=== PATIENT | female | born 2005 | race African-American/Black ===

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

== ENCOUNTER 2023-02-14 02:22 | Inpatient (IN) | payer OTHER ==
[2023-02-14 03:13] VITALS: BMI 35.1
[2023-02-14 03:32] LABS: Fetal Membranes Rupture RUPTURE DETECTED (No Rupture)
[2023-02-14] MEDS ORDERED: Tranexamic Acid 1,000 MG/10 ML VIAL IVP PRN (04:08)
[2023-02-14] MEDS ORDERED: Promethazine HCl 25 MG/ML VIAL IM PRN ×3 (04:08→22:08)
[2023-02-14] MEDS ORDERED: Misoprostol 200 MCG TAB PR PRN (04:08)
[2023-02-14] MEDS ORDERED: Lidocaine 1% (PF) 30 ML VIAL SC PRN (04:08)
[2023-02-14] MEDS ORDERED: hydrALAZINE 20 MG/ML VIAL SLOW IVP PRN ×2 (04:08→22:08)
[2023-02-14] MEDS ORDERED: Acetaminophen 500 MG TAB PO PRN (04:08)
[2023-02-14] MEDS ORDERED: Methylergonovine 0.2 MG/ML VIAL IM PRN (04:08)
[2023-02-14] MEDS ORDERED: Carboprost 250 MCG/ML AMP IM PRN (04:08)
[2023-02-14] MEDS ORDERED: Fentanyl 100 MCG/2 ML VIAL SLOW IVP PRN (04:08)
[2023-02-14] MEDS ORDERED: Ondansetron PF 4 MG/2 ML Vial IVP PRN ×3 (04:08→22:08)
[2023-02-14] MEDS ORDERED: Lactated Ringer's 1,000 ML IV SCH (04:15)
[2023-02-14] MEDS ORDERED: NS w/ Oxytocin 30 units 500 ML IV SCH ×3 (04:15→07:45)
[2023-02-14] MEDS ORDERED: Ibuprofen 800 MG TAB PO PRN (07:32)
[2023-02-14] MEDS ORDERED: HYDROcodone/Acetaminophen 5/325 mg Tablet PO PRN ×2 (07:32→22:08)
[2023-02-14] MEDS ORDERED: Penicillin G Potassium 5 MILL.UNITS VIAL ONE (07:35)
[2023-02-14] MEDS ORDERED: Penicillin G Potassium 5 MILL.UNITS in Sodium Chloride 0.9% 100 ML IVPB SCH (07:45)
[2023-02-14 07:52] LABS: Hemoglobin 13.1 g/dL (12.0-15.5); Mean Corpuscular HGB CONC 33.7 g/dL (32.0-36.0); Mean Corpuscular Hemoglobin 27.6 pg (27.0-33.0); Mean Corpuscular Volume 82.1 fl (81.6-98.3); Mean Platelet Volume 9.3 fl (7.4-10.4); Platelet Count 305 10x3/uL (150-450); RBC Distribution Width 13.2 % (11.5-14.5); Red Blood Cell (RBC) Count 4.74 10x6/uL (3.90-5.03); White Blood Cell (WBC) Count 13.4 10x3/uL (3.5-10.5)
[2023-02-14] MEDS ORDERED: Bupivacaine/Epinephrine 0.25% 30 ML VIAL ONE (08:00)
[2023-02-14] MEDS ORDERED: ePHEDrine Sulfate 50 MG/10 ML VIAL ONE (08:00)
[2023-02-14 08:36] LABS: Syphilis Antibody Nonreactive (Nonreactive); Syphilis Antibody Index 0.02 S/CO (<1.00 Non-Reactive)
[2023-02-14 08:37] LABS: HBSAg Index 0.16 S/CO (0-0.99); Hep B Surf Ag - L&D Non-Reactive S/CO (NonReactive)
[2023-02-14] MEDS ORDERED: Fentanyl 2 mcg/Bup 0.1% Cadd 100 ML ONE (09:21)
[2023-02-14] MEDS ORDERED: Naloxone HCl 0.4 mg/ml Vial IVP PRN ×2 (10:14)
[2023-02-14] MEDS ORDERED: diphenhydrAMINE 50 MG/ML VIAL IVP PRN (10:14)
[2023-02-14] MEDS ORDERED: Acetaminophen 325 MG TAB PO PRN (10:14)
[2023-02-14] MEDS ORDERED: Lactated Ringer's 500 ML IV PRN (10:14)
[2023-02-14] MEDS ORDERED: ePHEDrine Sulfate 50 MG/10 ML VIAL SLOW IVP PRN (10:14)
[2023-02-14] MEDS ORDERED: Moisturizing Cream (Eucerin) 113 GM JAR TOP PRN (10:14)
[2023-02-14] MEDS ORDERED: Communication Order-Pharmacy FS SCH (10:15)
[2023-02-14] MEDS: Fentanyl 2 mcg/Bupivacaine 0.1% Cassette 100 ML EPIDURAL SCH ×2 (10:45→17:40)
[2023-02-14] MEDS: Penicillin G 2.5 MILL.units 2.5 MILL.UNITS in Premix Bag 1 BAG IVPB SCH ×2 (12:44→16:49)
[2023-02-14] MEDS ORDERED: Lanolin Ointment 7 GM TUBE TOP PRN (22:08)
[2023-02-14] MEDS ORDERED: Preparation H Ointment 28 GM TUBE PR PRN (22:08)
[2023-02-14] MEDS ORDERED: Benzocaine-Menthol 82.5 ML CAN TOP PRN (22:08)
[2023-02-14] MEDS ORDERED: Bisacodyl 10 MG SUPP PR PRN (22:08)
[2023-02-14] MEDS ORDERED: Boostrix 0.5 ML (Tdap) VIAL (>/=7 yrs of age) IM ONE (22:08)
[2023-02-14] MEDS ORDERED: Milk Of Magnesia 30 ML UDCUP PO PRN (22:08)
[2023-02-14] MEDS ORDERED: diphenhydrAMINE 25 MG CAP PO PRN (22:08)
[2023-02-14] MEDS: Ibuprofen 800 MG TAB PO SCH (23:38)
[2023-02-15] MEDS: Ibuprofen 800 MG TAB PO SCH ×3 (08:04→21:22)
[2023-02-15] MEDS: Docusate 100 MG CAP PO SCH ×2 (08:04→21:21)
[2023-02-15] MEDS: Prenatal Vitamin 1 TAB PO SCH (08:04)
[2023-02-15] MEDS: Ferrous Sulfate 325 MG TAB PO SCH (18:49)
[2023-02-16] MEDS: Ibuprofen 800 MG TAB PO SCH (06:28)
[2023-02-16] MEDS: Prenatal Vitamin 1 TAB PO SCH (08:54)
[2023-02-16] MEDS: Docusate 100 MG CAP PO SCH (08:54)
[2023-02-16] MEDS: Ferrous Sulfate 325 MG TAB PO SCH (08:55)
[2023-02-16 13:42] VITALS: BP 130/76; TEMP 99.1
== END 2023-02-16 12:50 | disposition home or self-care (01) | DRG 807 ==
LOC: CSHLD/OP 02:22 → CSHLD 07:34 → CSHPP 02-15 10:50
PROVIDERS: ADMIT Family Medicine; ATTEND Family Medicine
PROC: 10E0XZZ Delivery of Products of Conception, External Approach (ICD-10-PCS; principal; 2023-02-14)
PROC: 0KQM0ZZ Repair Perineum Muscle, Open Approach (ICD-10-PCS; 2023-02-14)
DX: O42.02 Full-term premature rupture of membranes, onset of labor within 24 hours of rupture (principal); Z37.0 Single live birth; Z3A.38 38 weeks gestation of pregnancy; O99.824 Streptococcus B carrier state complicating childbirth; Z79.899 Other long term (current) drug therapy; O70.1 Second degree perineal laceration during delivery
CPT/HCPCS: 36415; 51702; 84112; 85027; 86780; 86850; 86900; 86901; 87340; 99285; J2540; J2590; J3490; J7120

== ENCOUNTER 2023-12-05 08:13 | Emergency (ER) | payer MEDICAID, SELFPAY ==
[2023-12-05 16:38] LABS: SARS-CoV-2 NAA Rapid Test DETECTED (NotDetected)
== END 2023-12-05 09:30 | disposition home or self-care (01) ==
LOC: CSHERS 08:13
DX: J06.9 Acute upper respiratory infection, unspecified (principal)
CPT/HCPCS: 87081; 87430; 99283; U0002

== ENCOUNTER 2024-09-16 09:30 | Emergency (ER) | payer SELFPAY ==
[2024-09-16] MEDS ORDERED: Ketorolac Tromethamine 30 MG (1 mL) VIAL ONE (10:13)
[2024-09-16] MEDS ORDERED: Ondansetron ODT 4 MG TAB ONE (10:13)
[2024-09-16 10:46] LABS: #Basophils 0.02 10x3/uL (0.0-0.2); #Eosinophils 0.08 10x3/uL (0.0-0.5); #Neutrophils 3.45 10x3/uL (1.5-8.4); %Basophils 0.4 % (0.0-2.0); %Eosinophils 1.4 % (0.0-6.0); %Lymphocytes 27.1 % (18.0-47.0); %Neutrophils 61.9 % (40.0-75.0); Hematocrit 39.1 % (34.9-44.5); Hemoglobin 12.8 g/dL (12.0-15.5); Mean Corpuscular HGB CONC 32.7 g/dL (32.0-36.0); Mean Corpuscular Hemoglobin 27.3 pg (27.0-33.0); Mean Corpuscular Volume 83.4 fL (81.6-98.3); Platelet Count 280 10x3/uL (150-450); RBC Distribution Width 11.9 % (11.5-14.5); Red Blood Cell (RBC) Count 4.69 10x6/uL (3.90-5.03); White Blood Cell (WBC) Count 5.6 10x3/uL (3.5-10.5)
[2024-09-16 10:52] LABS: BHCG - Serum Negative (NEGATIVE); Pregs Control Background? CLEAR/WHITE (CLR/WHITE); Pregs Control Bar Appear? YES (CONTROL BAR)
[2024-09-16 11:03] LABS: ALT (SGPT) 10 U/L (8-55); AST (SGOT) 13 U/L (5-34); Albumin 3.7 g/dL (3.5-5.0); Alkaline Phosphatase 38 U/L (40-110); Anion Gap 13 mmol/L (10-20); BUN (Urea Nitrogen) 9 mg/dL (7.0-18.7); Bilirubin, Total 0.3 mg/dL (0.2-1.2); Calc. Creatinine Clearance 0 mL/min (70-130); Carbon Dioxide 24 mmol/L (22-29); Chloride 106 mmol/L (98-107); Estimated GFR 116; Globulin 2.7 g/dL (2.4-3.5); Glucose 101 mg/dL (70-105); Potassium 3.5 mmol/L (3.5-5.1); Protein, Total 6.4 g/dL (6.0-8.3); Sodium 139 mmol/L (136-145)
[2024-09-16 12:10] LABS: Bilirubin Neg (Negative); Blood, Urine Negative (Negative); Clarity Clear (Clear); Glucose, Urine (Dipstick) Normal (Negative); Ketone, Urine Negative (Negative); Leukocyte Negative (Negative); Nitrite Negative (Negative); Protein, Urine (Dipstick) Negative (Neg-Trace); Urobilinogen Normal mg/dL (Less than 2)
[2024-09-16 12:37] LABS: Bacteria/HPF 1+ HPF (None Seen); CAUTI Indications for Culture Pelvic or flank pain; RBC/HPF None Seen HPF (0-3); Squamous Epithelial 21-50 HPF (0-3); WBC/HPF 0-3 HPF (0-3)
[2024-09-16 12:42] LABS: Urine Culture Reflex No No
== END 2024-09-16 12:26 | disposition home or self-care (01) ==
LOC: CSHERS 09:30
DX: B34.9 Viral infection, unspecified (principal); Z55.6 Problems related to health literacy
CPT/HCPCS: 36415; 80053; 81001; 84703; 85025; 87428; 96372; 99284; J1885; Q0162

== ENCOUNTER 2024-10-21 12:44 | Emergency (ER) | payer SELFPAY ==
[2024-10-21 14:20] LABS: Bilirubin Neg (Negative); Blood, Urine 25 (Negative); Clarity Clear (Clear); Glucose, Urine (Dipstick) Normal (Negative); Ketone, Urine Negative (Negative); Leukocyte 25 (Negative); Nitrite Negative (Negative); Protein, Urine (Dipstick) 15 mg/dl (Neg-Trace); Urobilinogen Normal mg/dL (Less than 2)
[2024-10-21 14:22] LABS: Pregnancy Test - Urine (BHCG) POSITIVE (Negative); Pregu Control Background? CLEAR/WHITE (CLR/WHITE); Pregu Control Bar Appear? YES (CONTROL BAR)
[2024-10-21 14:36] LABS: Bacteria/HPF 1+ HPF (None Seen); CAUTI Indications for Culture Pelvic or flank pain; RBC/HPF 21-50 HPF (0-3); Squamous Epithelial Greater than 50 HPF (0-3)
[2024-10-21 14:38] LABS: Urine Culture Reflex No No
[2024-10-22 06:19] LABS: Chlamydia by PCR, Vaginal Swab Not Detected (NotDetected); GC by PCR, Vaginal Swab Not Detected (NotDetected); Tric.vaginalis PCR,Vaginal Sw Not Detected (NotDetected)
== END 2024-10-21 15:50 | disposition home or self-care (01) ==
LOC: CSHERS 12:44
DX: B37.31 Acute candidiasis of vulva and vagina (principal); N76.0 Acute vaginitis; Z33.1 Pregnant state, incidental
CPT/HCPCS: 81001; 81025; 87480; 87491; 87510; 87591; 87660; 87661; 99283